=== PATIENT | male | born 1960 | race Caucasian/White ===

== ENCOUNTER → 2016-11-10 | Outpatient (CLI) | payer BC ==
[~2016-11-10] MED LIST: ANAPROX DS550 MG PO; CLINDAMYCIN300 MG PO; KEFLEX500 MG PO; MOTRIN800 MG PO; TRIMOX500 MG PO
== END | disposition home or self-care (01) ==
LOC: LAB 07:43
DX: H43.10 Vitreous hemorrhage, unspecified eye (principal)

== ENCOUNTER → 2017-05-27 | Day surgery (SDC) | payer BC, MEDICARE ==
[~2017-05-27] VITALS: Ht 190.5 cm; Wt 129.3 kg
[~2017-05-27] MED LIST changes: +AMLODIPINE BESY10 MG PO; +ASPIRIN ADULT L81 M2 PO; +CENTRUM SILVER1 EACH PO; +CYMBALTA60 MG PO; +HUMALOG100 UNIT/2 SQ; +LASIX80 MG PO; +LEVOTHYROXINE200 MC2 PO; +LOPRESSOR100 M1 PO; +LOSARTAN POTAS100 M1 PO; +NEURONTIN300 MG PO; +SIMVASTATIN40 MG PO; +VITAMIN D5000 UNIT PO
--- NOTE | ~2017-05-27 | O ---
[place], [place] OPERATIVE NOTE NAME: RICCARDO CASTILLO [facility] #: [id number] UNIT #: [id number] ROOM: DOCTOR: LEYLA BARONE MD BIRTHDATE: [birth year] DOS: 05/27/2017 PREOPERATIVE DIAGNOSIS: Cataract, right eye. POSTOPERATIVE DIAGNOSIS: Cataract, right eye. OPERATION: Extracapsular cataract extraction by phacoemulsification with posterior chamber intraocular lens implantation, right eye. ANESTHESIA: Monitored standby. OPERATIVE FINDINGS AND PROCEDURE: 2% Xylocaine topical anesthetic gel was applied to the eye in the preop area. The patient was taken to the operating room and prepped and draped in the standard fashion for sterile intraocular surgery. A time out procedure was performed verifying correct patient, correct site and corrects lens with Elizabeth Barone M.D. The operating microscope was swung into position and the lid speculum was inserted. Using a Meli paracentesis blade, a paracentesis was made through clear cornea. Viscoelastic was used to fill the anterior chamber. Using a metal keratome a 2.4 mm self-sealing clear corneal cataract incision was made temporally at the limbus. Using a pre-bent 25 gauge cystotome needle, a standard continuous curvilinear capsulorrhexis was performed. The anterior capsule was removed with forceps. The lens nucleus was hydrodissected and phacoemulsified in the posterior chamber. Cortical material was removed with the irrigation aspiration hand piece and the posterior capsule was then polished with a curet under irrigation. The posterior chamber and capsular bag were filled with viscoelastic. A posterior chamber intraocular lens manufactured by: [employer], Model #[id number], and 16.5 diopters in strength were then inserted into the posterior chamber and within the capsular bag using the lens cartridge and injector system. Viscoelastic was removed using the irrigation aspiration handpiece. The anterior chamber was filled with balanced salt solution through the paracentesis. Both the paracentesis site and cataract incisions were hydrated with BSS and verified to be water-tight and self-sealing. Cefuroxime 1 mg/0.1 mL was injected into the anterior chamber through the paracentesis site. The incision checked to be water-tight using a Weck-Carla sponge. The integrity of the cataract wound and ocular tension were checked. Lid speculum and drapes were removed. The patient was transferred from the operating room to the recovery room in satisfactory condition. [place], [place] OPERATIVE NOTE NAME: RICCARDO CASTILLO UNIT #: [id number] ROOM: DOCTOR: LEYLA BARONE MD BIRTHDATE: [birth year] LEYLA BARONE MD CM:OPRECORD:OPERATIVE NOTE [id number] LEYLA BARONE MD 05/27/17 0945 interface
[2017-05-27 06:40] VITALS: BP 134/56
[2017-05-27 08:13] VITALS: BP 147/62
[2017-05-27 08:25] VITALS: BP 169/74
[2017-05-27 08:41] VITALS: BP 174/69
== END ==
LOC: SDC 05-25 10:15
DX: H26.9 Unspecified cataract (principal); I10 Essential (primary) hypertension; E11.9 Type 2 diabetes mellitus without complications; I25.10 Atherosclerotic heart disease of native coronary artery without angina pectoris; K21.9 Gastro-esophageal reflux disease without esophagitis; Z85.51 Personal history of malignant neoplasm of bladder; E78.00 Pure hypercholesterolemia, unspecified; E03.9 Hypothyroidism, unspecified; F41.9 Anxiety disorder, unspecified; F32.9 Major depressive disorder, single episode, unspecified; Z89.421 Acquired absence of other right toe(s); Z98.890 Other specified postprocedural states; F17.210 Nicotine dependence, cigarettes, uncomplicated

== ENCOUNTER → 2017-06-17 | Day surgery (SDC) | payer BC, MEDICARE ==
[~2017-06-17] VITALS: Ht 190.5 cm; Wt 129.3 kg
--- NOTE | ~2017-06-17 | O ---
[place], [place] OPERATIVE NOTE [id number] #: [id number] ROOM: DOCTOR: LEYLA BARONE MD BIRTHDATE: [birth year] DOS: 06/17/2017 PREOPERATIVE DIAGNOSIS: Cataract, left eye. POSTOPERATIVE DIAGNOSIS: Cataract, left eye. OPERATION: Extracapsular cataract extraction by phacoemulsification with posterior chamber intraocular lens implantation, left eye. ANESTHESIA: Monitored standby. OPERATIVE FINDINGS AND PROCEDURE: 2% Xylocaine topical anesthetic gel was applied to the eye in the preop area. The patient was taken to the operating room and prepped and draped in the standard fashion for sterile intraocular surgery. A time out procedure was performed verifying correct patient, correct site and corrects lens with Elizabeth Barone M.D. The operating microscope was swung into position and the lid speculum was inserted. Using a Meli paracentesis blade, a paracentesis was made through clear cornea. Viscoelastic was used to fill the anterior chamber. Using a metal keratome a 2.4 mm self-sealing clear corneal cataract incision was made temporally at the limbus. Using a pre-bent 25 gauge cystotome needle, a standard continuous curvilinear capsulorrhexis was performed. The anterior capsule was removed with forceps. The lens nucleus was hydrodissected and phacoemulsified in the posterior chamber. Cortical material was removed with the irrigation aspiration hand piece and the posterior capsule was then polished with a curet under irrigation. The posterior chamber and capsular bag were filled with viscoelastic. A posterior chamber intraocular lens manufactured by: [employer], Model #[id number], and 17.0 diopters in strength were then inserted into the posterior chamber and within the capsular bag using the lens cartridge and injector system. Viscoelastic was removed using the irrigation aspiration handpiece. The anterior chamber was filled with balanced salt solution through the paracentesis. Both the paracentesis site and cataract incisions were hydrated with BSS and verified to be water-tight and self-sealing. Cefuroxime 1 mg/0.1 mL was injected into the anterior chamber through the paracentesis site. The incision checked to be water-tight using a Weck-Carla sponge. The integrity of the cataract wound and ocular tension were checked. Lid speculum and drapes were removed. The patient was transferred from the operating room to the recovery room in satisfactory condition. [place], [place] OPERATIVE NOTE NAME: RICCARDO CASTILLO UNIT #: [id number] ROOM: DOCTOR: LEYLA BARONE MD BIRTHDATE: [birth year] LEYLA BARONE MD CM:OPRECORD:OPERATIVE NOTE [id number] LEYLA BARONE MD 06/17/17 0947 interface
[2017-06-17 09:42] VITALS: BP 117/66
[2017-06-17 09:57] VITALS: BP 125/48
[2017-06-17 10:11] VITALS: BP 130/59
== END ==
LOC: SDC 06-11 08:45
DX: E11.36 Type 2 diabetes mellitus with diabetic cataract (principal); I25.10 Atherosclerotic heart disease of native coronary artery without angina pectoris; E78.00 Pure hypercholesterolemia, unspecified; K21.9 Gastro-esophageal reflux disease without esophagitis; F41.9 Anxiety disorder, unspecified; F32.9 Major depressive disorder, single episode, unspecified; E07.9 Disorder of thyroid, unspecified; F17.210 Nicotine dependence, cigarettes, uncomplicated; Z79.899 Other long term (current) drug therapy; E66.01 Morbid (severe) obesity due to excess calories; E11.22 Type 2 diabetes mellitus with diabetic chronic kidney disease; I12.9 Hypertensive chronic kidney disease with stage 1 through stage 4 chronic kidney disease, or unspecified chronic kidney disease; N18.9 Chronic kidney disease, unspecified

== ENCOUNTER 2017-12-14 12:45 | Emergency (ER) | payer BC, MEDICARE ==
[~2017-12-14] VITALS: Wt 113.4 kg
--- NOTE | ~2017-12-14 | EKG ---
[place], [place] ELECTROCARDIOGRAM REPORT NAME: RICCARDO CASTILLO UNIT #: [id number] ROOM: DOCTOR: EPIPHANY DRAFT REPORT BIRTHDATE: [birth year] [facility] Test Date: 2017-12-14 Test Time: 14:45:21 Pat Name: RICCARDO CASTILLO Department: Room: Gender: [employer] Supervisor: : [id number] Requested By: PIEDAD MILES Order Number: [id number] Reading MD: Celio Reece MD Measurements Intervals [place] Rate: 89 P: 63 IN: 173 QRS: 49 QRSD: 106 T: 30 QT: 383 QTc: 466 Interpretive Statements Sinus rhythm Probable left atrial enlargement Minimal ST depression, lateral leads Baseline wander in lead(s) V1,V2 Electronically Signed On 12-15-2017 19:54:16 PDT by Celio Reece MD CM:EKGRPT:ELECTROCARDIOGRAM REPORT [id number] PIEDAD REED DRAFT REPORT PIEDAD MILES M.D.
[2017-12-14 13:26] LABS: HEMATOCRIT 36.2 % (42.0-52.0); HEMOGLOBIN 11.1 g/dl (14.0-18.0); MEAN CORPUSCULAR HGB 29.1 pg (27.0-31.0); MEAN CORPUSCULAR HGB CONC 30.7 g/dl (33.0-37.0); MEAN PLATELET VOLUME 12.9 fl (9.6-12.3); PLATELET COUNT AUTOMATED 188 10*3/uL (130-400); RED BLOOD COUNT 3.81 10*6/uL (4.50-5.90); RED CELL DISTRI WIDTH 15.9 % (0-14.5); WHITE BLOOD COUNT 11.3 10*3/uL (4.8-10.8)
[2017-12-14 13:26] LABS: ABG HCO3 14.4 mmol/l (22-26); ABG O2 SATURATION 96.6 % (95-97); ARTERIAL BLOOD GAS PCO2 30.7 mmHg (35-45); ARTERIAL BLOOD GAS PH 7.292 (7.35-7.45); ARTERIAL BLOOD GAS PO2 95.7 mmHg (80-90)
[2017-12-14 13:27] LABS: ABG BASE EXCESS -10.8 mmol/L (-2.0-2.0)
[2017-12-14 13:41] LABS: ALBUMIN 2.8 gm/dl (3.1-4.5); CREATININE 7.72 mg/dL (0.70-1.30); TOTAL PROTEIN 7.4 gm/dL (6.4-8.2)
[2017-12-14 13:47] LABS: TOTAL CELLS COUNTED 100 #CELLS
[2017-12-14 13:48] LABS: PLATELET SUFFICIENCY NORMAL (NORMAL)
[2017-12-14 13:52] LABS: POTASSIUM 6.4 mmol/L (3.5-5.1)
== END 2017-12-14 15:59 | disposition short-term general hospital (02) ==
LOC: ED 12:45
PROVIDERS: Emergency Medicine
DX: E11.10 Type 2 diabetes mellitus with ketoacidosis without coma (principal); N17.9 Acute kidney failure, unspecified; K92.2 Gastrointestinal hemorrhage, unspecified; Z99.2 Dependence on renal dialysis; Z79.899 Other long term (current) drug therapy; Z79.82 Long term (current) use of aspirin; Z79.4 Long term (current) use of insulin; Z89.429 Acquired absence of other toe(s), unspecified side

== ENCOUNTER → 2021-01-11 | Outpatient (CLI) | payer OTHER | END | disposition home or self-care (01) | LOC: NM 10:00 | PROVIDERS: ATTEND Orthopaedic Surgery | DX: M76.01 Gluteal tendinitis, right hip (principal); M25.551 Pain in right hip; M70.61 Trochanteric bursitis, right hip; M16.11 Unilateral primary osteoarthritis, right hip ==

== ENCOUNTER → 2021-02-22 | Outpatient (CLI) | payer OTHER | END | disposition home or self-care (01) | LOC: RESCLI 06:35 | PROVIDERS: ATTEND Internal Medicine | DX: I12.9 Hypertensive chronic kidney disease with stage 1 through stage 4 chronic kidney disease, or unspecified chronic kidney disease (principal); E10.22 Type 1 diabetes mellitus with diabetic chronic kidney disease; E10.21 Type 1 diabetes mellitus with diabetic nephropathy; N18.9 Chronic kidney disease, unspecified; E03.9 Hypothyroidism, unspecified; E55.9 Vitamin D deficiency, unspecified; E78.5 Hyperlipidemia, unspecified; K59.03 Drug induced constipation; T40.2X5A Adverse effect of other opioids, initial encounter; F17.200 Nicotine dependence, unspecified, uncomplicated; G89.29 Other chronic pain; Z94.0 Kidney transplant status; Z79.899 Other long term (current) drug therapy ==

== ENCOUNTER → 2022-02-05 | Outpatient (CLI) | payer OTHER | END | disposition home or self-care (01) | LOC: RESCLI 00:57 | PROVIDERS: ATTEND Student in an Organized Health Care Education/Training Program | DX: I12.9 Hypertensive chronic kidney disease with stage 1 through stage 4 chronic kidney disease, or unspecified chronic kidney disease (principal); E10.22 Type 1 diabetes mellitus with diabetic chronic kidney disease; N18.9 Chronic kidney disease, unspecified; E03.9 Hypothyroidism, unspecified; G62.9 Polyneuropathy, unspecified; K59.03 Drug induced constipation; E55.9 Vitamin D deficiency, unspecified; I10 Essential (primary) hypertension; E78.5 Hyperlipidemia, unspecified; C67.9 Malignant neoplasm of bladder, unspecified; F17.200 Nicotine dependence, unspecified, uncomplicated; Z94.0 Kidney transplant status; Z98.890 Other specified postprocedural states; Z79.82 Long term (current) use of aspirin; Z79.899 Other long term (current) drug therapy ==

== ENCOUNTER → 2022-09-03 | Outpatient (CLI) | payer OTHER | END | disposition home or self-care (01) | LOC: RESCLI 01:35 | PROVIDERS: ATTEND Student in an Organized Health Care Education/Training Program | DX: G62.9 Polyneuropathy, unspecified (principal); E10.22 Type 1 diabetes mellitus with diabetic chronic kidney disease; E03.9 Hypothyroidism, unspecified; K59.03 Drug induced constipation; F17.200 Nicotine dependence, unspecified, uncomplicated; I10 Essential (primary) hypertension; E78.5 Hyperlipidemia, unspecified; Z94.0 Kidney transplant status; Z98.890 Other specified postprocedural states; Z79.82 Long term (current) use of aspirin; Z79.899 Other long term (current) drug therapy ==

== ENCOUNTER → 2023-09-09 | Outpatient (CLI) | payer MEDICARE, OTHER | END | disposition home or self-care (01) | LOC: RESCLI 13:58 | PROVIDERS: ATTEND Internal Medicine | DX: I12.9 Hypertensive chronic kidney disease with stage 1 through stage 4 chronic kidney disease, or unspecified chronic kidney disease (principal); E10.22 Type 1 diabetes mellitus with diabetic chronic kidney disease; N18.9 Chronic kidney disease, unspecified; G62.9 Polyneuropathy, unspecified; E03.9 Hypothyroidism, unspecified; K59.03 Drug induced constipation; E78.5 Hyperlipidemia, unspecified; Z94.0 Kidney transplant status; Z79.899 Other long term (current) drug therapy; Z88.8 Allergy status to other drugs, medicaments and biological substances; Z98.890 Other specified postprocedural states ==

== ENCOUNTER → 2024-09-08 | Outpatient (CLI) | payer MEDICARE, OTHER | END | disposition home or self-care (01) | LOC: RESCLI 02:41 | PROVIDERS: ATTEND Internal Medicine | DX: E10.21 Type 1 diabetes mellitus with diabetic nephropathy (principal); I10 Essential (primary) hypertension; G62.9 Polyneuropathy, unspecified; E03.9 Hypothyroidism, unspecified; K59.03 Drug induced constipation; E78.5 Hyperlipidemia, unspecified; Z94.0 Kidney transplant status ==

== ENCOUNTER 2024-12-30 18:23 | Emergency (ER) | payer MEDICARE, OTHER ==
[~2024-12-30] VITALS: Ht 190.5 cm; Wt 102.1 kg
[2024-12-30] MEDS ORDERED: CEPHALEXIN500 M1 PO (20:32)
[2024-12-30] MEDS ORDERED: CEPHALEXIN 500 MG CAP PO ONE (20:40)
[2024-12-30] MEDS ORDERED: Bacitracin Zinc 14 GM TUBE T ONE (20:40)
== END 2024-12-30 20:56 | disposition home or self-care (01) ==
LOC: ED 18:23
DX: S62.522B Displaced fracture of distal phalanx of left thumb, initial encounter for open fracture (principal); I10 Essential (primary) hypertension; E11.9 Type 2 diabetes mellitus without complications; I25.10 Atherosclerotic heart disease of native coronary artery without angina pectoris; K21.9 Gastro-esophageal reflux disease without esophagitis; E78.5 Hyperlipidemia, unspecified; E03.9 Hypothyroidism, unspecified; F41.9 Anxiety disorder, unspecified; F32.A Depression, unspecified; Z79.899 Other long term (current) drug therapy; Z79.82 Long term (current) use of aspirin; Z79.4 Long term (current) use of insulin; Z89.421 Acquired absence of other right toe(s); W22.8XXA Striking against or struck by other objects, initial encounter; Y93.89 Activity, other specified; Y92.89 Other specified places as the place of occurrence of the external cause; Y99.8 Other external cause status

== ENCOUNTER 2025-01-14 06:27 | Emergency (ER) | payer MEDICARE, OTHER ==
[~2025-01-14] VITALS: Ht 190.5 cm; Wt 104.3 kg
[~2025-01-14 06:27] MED LIST changes: +CEPHALEXIN500 M1 PO
[2025-01-14] MEDS ORDERED: LEVOTHYROXINE175 MCG PO (06:45)
[2025-01-14] MEDS ORDERED: ZETIA10 MG PO (06:45)
[2025-01-14] MEDS ORDERED: CLOPIDOGREL75 MG PO (06:45)
[2025-01-14] MEDS ORDERED: MYCOPHENOLIC A360 M1 PO (06:46)
[2025-01-14] MEDS ORDERED: TACROLIMUS1 M1 PO (06:47)
[2025-01-14] MEDS ORDERED: LIDOCAINE 5% ANORECTAL CREAM T ONE (07:05)
== END 2025-01-14 08:50 | disposition home or self-care (01) ==
LOC: ED 06:27
DX: M79.671 Pain in right foot (principal); R20.0 Anesthesia of skin; G62.9 Polyneuropathy, unspecified; Z79.899 Other long term (current) drug therapy; Z79.82 Long term (current) use of aspirin; Z79.4 Long term (current) use of insulin; Z89.421 Acquired absence of other right toe(s)